=== PATIENT | male | born 1985 | race Caucasian/White ===

== ENCOUNTER → 2020-03-13 | Outpatient (CLI) | payer BC ==
[~2020-03-13] MED LIST: ALLEGRA D 12 HO1 TER PO; KENALOG0.1% TP; MEDROL DOSEPAK4 MG PO; VICODIN 500 MG-1 TAB PO; ZITHROMAX Z PA250 MG PO
== END | disposition home or self-care (01) ==
LOC: COVID19 13:20
PROVIDERS: ATTEND Nurse Practitioner
DX: U07.1 COVID-19 (principal)

== ENCOUNTER → 2021-03-09 | Outpatient (CLI) | payer BC | END | disposition home or self-care (01) | LOC: COVID19 15:26 | PROVIDERS: ATTEND Student in an Organized Health Care Education/Training Program | DX: Z11.52 Encounter for screening for COVID-19 (principal) ==